=== PATIENT | male | born 1985 | race Caucasian/White ===

== ENCOUNTER 2023-08-18 18:31 | Emergency (ER) | payer OTHER ==
[2023-08-18] MEDS: HYDROmorphone 1 MG/ML 1 ML SYRINGE IVP STA (18:35)
[2023-08-18] MEDS: KETAMINE 10 MG/ML 20 ML VIAL IV ONE (18:39)
[2023-08-18] MEDS: SODIUM CHLORIDE 0.9% 1,000 ML IV STA (18:43)
[2023-08-18 18:45] VITALS: TEMP 97.7
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
[2023-08-18] MEDS: KETOROLAC 15 MG/ML 1 ML VIAL IVP STA (18:53)
[2023-08-18] MEDS: ACETAMINOPHEN IV (For NPO) 1,000 MG in EMPTY BAG 1 BAG IVPB STA (18:57)
[2023-08-18 19:01] LABS: Basophils # (A) 0.1 k/uL (0-0.2); Basophils % (A) 0 %; Eosinophils # (A) 0.2 k/uL (0-0.7); Eosinophils % (A) 1 %; HCT 44.3 % (39.0-53.0); HGB 15.3 gm/dL (13.0-17.5); Lymphocytes # (A) 3.8 k/uL (1.0-4.8); Lymphocytes % (A) 33 %; MCH 31.6 pg (25.0-35.0); MCHC 34.6 g/dL (31.0-37.0); MCV 91.3 fL (80.0-100.0); Mean Platelet Volume 8.6; Monocytes # (A) 0.9 k/uL (0-1.0); Monocytes % (A) 7 %; Neutrophils # (A) 6.4 k/uL (1.3-7.7); Neutrophils % (A) 55 %; Platelet Count 303 k/uL (150-450); RBC 4.85 m/uL (4.30-5.90); RDW 13.6 % (11.5-15.5); WBC 11.7 k/uL (3.8-10.6)
[2023-08-18 19:12] LABS: ALT 28 U/L (4-49); AST 38 U/L (17-59); African American GFR (CKD) >90 (>60 ml/min/1.73 sqM); Albumin 4.9 g/dL (3.5-5.0); Alcohol <10 mg/dL; Alkaline Phosphatase 67 U/L (38-126); Anion Gap 15 mmol/L; Blood Urea Nitrogen 33 mg/dL (9-20); Calcium 9.7 mg/dL (8.4-10.2); Carbon Dioxide 17 mmol/L (22-30); Chloride 106 mmol/L (98-107); Glucose 81 mg/dL (74-99); Non-African American GFR(CKD) 88 (>60 ml/min/1.73 sqM); Potassium 4.2 mmol/L (3.5-5.1); Sodium 138 mmol/L (137-145); Total Bilirubin 0.6 mg/dL (0.2-1.3); Total Protein 7.2 g/dL (6.3-8.2)
[2023-08-18 19:23] LABS: Partial Thromboplastin Time 22.7 sec (22.0-30.0); Prothrombin Time 10.7 sec (10.0-12.5)
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
[2023-08-18 20:17] VITALS: PULSE 89
[2023-08-18 20:25] VITALS: BP 126/86; RESP 18
== END 2023-08-18 20:34 | disposition other institution (70) ==
LOC: EC 18:31
DX: T20.20XA Burn of second degree of head, face, and neck, unspecified site, initial encounter (principal); T20.27XA Burn of second degree of neck, initial encounter; T23.201A Burn of second degree of right hand, unspecified site, initial encounter; T22.211A Burn of second degree of right forearm, initial encounter; T22.221A Burn of second degree of right elbow, initial encounter; T31.0 Burns involving less than 10% of body surface; Z87.891 Personal history of nicotine dependence; W40.1XXA Explosion of explosive gases, initial encounter
CPT/HCPCS: 36415; 93005; 80053; 84484; 85025; 85610; 85730; 80320; 71045; 99291; 96374; 96375 ×2; 96372; 96361; J3360; J1170; J0131; J1885